=== PATIENT | male | born 1950 | race Caucasian/White ===

== ENCOUNTER 2017-04-04 14:17 | Inpatient (IN) | payer BC, OTHER ==
[2017-04-04 14:50] VITALS: BP 128/74
--- NOTE | 2017-04-04 14:50 | NUR ---
Pre-Assessment Pt is A&O x 2-3, ambulatory with steady gait. Pt is intoxicated and states that his last drink was a pint of Vodka 1 hour before coming here to intake and that he drinks 1.5 pints daily for the last 3 years. Pt is anxious and excited, V/S stable: T. 97.2 HR 111, RR 18 BP 128/74 SpO2 95% RA and he denies pain. Home medications brought. Will cont. Assessment upon admission and will cont. to monitor the pt.
[2017-04-04] MEDS ORDERED: FLUT15.812 NS (15:19)
[2017-04-04] MEDS ORDERED: UMEC1BLS IH (15:19)
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
== END 2017-04-04 18:07 | disposition left against medical advice (07) | DRG 897 ==
LOC: SRC 14:17
PROVIDERS: ADMIT Internal Medicine; ATTEND Internal Medicine
DX: F10.229 Alcohol dependence with intoxication, unspecified (principal); F32.9 Major depressive disorder, single episode, unspecified; J44.9 Chronic obstructive pulmonary disease, unspecified; F41.9 Anxiety disorder, unspecified; Y90.9 Presence of alcohol in blood, level not specified; F17.210 Nicotine dependence, cigarettes, uncomplicated; Z82.49 Family history of ischemic heart disease and other diseases of the circulatory system; Z81.1 Family history of alcohol abuse and dependence
CPT/HCPCS: J3411